=== PATIENT | female | born 1960 | race Asian ===

== ENCOUNTER 2021-10-01 14:37 | Emergency (ER) | payer MEDICAID, OTHER ==
[~2021-10-01] VITALS: Ht 157.5 cm; Wt 72.7 kg
[2021-10-01] MEDS ORDERED: SIMV-259 PO (15:32)
[2021-10-01] MEDS ORDERED: LOSA50TA37 PO (15:32)
[2021-10-01] MEDS ORDERED: ALLO100T PO (15:32)
[2021-10-01] MEDS ORDERED: METO25XL PO (15:32)
[2021-10-01 15:51] LABS: BASOPHILS % (AUTO) 0.9 % (0.0-2.0); HEMATOCRIT 40.3 % (36-46); HEMOGLOBIN 13.6 g/dL (12.0-16.0); LYMPHOCYTES # (AUTO) 2.3 K/uL (1.0-4.8); LYMPHOCYTES % (AUTO) 33.6 % (22.0-44.0); MEAN CORPUSCULAR HEMOGLOBIN 30.2 pg (26.0-34.0); MEAN CORPUSCULAR HGB CONC 33.8 G/dL (31.0-37.0); MEAN CORPUSCULAR VOLUME 90 fL (80-100); MONOCYTES # (AUTO) 0.6 K/uL (0.1-1.0); MONOCYTES % (AUTO) 9.1 % (2.0-9.0); NEUTROPHILS # (AUTO) 3.6 K/uL (1.8-7.7); NEUTROPHILS % (AUTO) 53.4 % (40.0-70.0); PLATELET COUNT (AUTO) 284 K/uL (150-450); RED CELL DISTRIBUTION WIDTH 13.3 % (11.5-14.5)
[2021-10-01 16:01] LABS: ANION GAP 5 mmol/L (8-16); CALCIUM, TOTAL 9.9 mg/dL (8.8-10.5); CARBON DIOXIDE 34 mmol/L (22-29); CHLORIDE 104 mmol/L (98-107); CREATININE 0.72 mg/dL (0.60-1.30); GLOMERULAR FILTR. RATE CALC > 60 mL/min (>60); GLUCOSE,RANDOM 121 mg/dL (70-110); POTASSIUM 3.8 mmol/L (3.5-5.1); SODIUM SERUM 143 mmol/L (136-145); UREA NITROGEN, BLOOD 12 mg/dL (7-18)
[2021-10-01 16:05] LABS: ALANINE AMINOTRANSFERASE 26 U/L (12-78); ALBUMIN 3.9 g/dL (3.4-5.0); ALKALINE PHOSPHATASE 86 U/L (46-116); ASPARTATE AMINOTRANSFERASE 23 U/L (15-37); BILIRUBIN,TOTAL 0.2 mg/dL (0.1-1.0); TOTAL PROTEIN, SERUM 8.7 g/dL (6.4-8.2)
[2021-10-01 16:18] VITALS: BP 119/63
[2021-10-01 16:22] LABS: B-TYPE NATRIURETIC PEPTIDE 18 pg/mL (0-100)
== END 2021-10-01 16:43 | disposition home or self-care (01) ==
LOC: EMS 14:42
DX: R06.00 Dyspnea, unspecified (principal); R06.02 Shortness of breath; I10 Essential (primary) hypertension; Z88.1 Allergy status to other antibiotic agents
CPT/HCPCS: 71045; 80053; 83880; 84484; 85025; 93005; 99285; 36415-L1; 36415-TC

== ENCOUNTER 2023-11-02 15:21 | Emergency (ER) | payer OTHER ==
[~2023-11-02] VITALS: Ht 154.9 cm; Wt 77.3 kg
[~2023-11-02 15:21] MED LIST: ALLO100T PO; LOSA-382 PO; METO25XL PO; SIMV-259 PO
[2023-11-02 15:26] VITALS: BP 142/85; PULSE 94; RESP 18; TEMP 98.4
[2023-11-02] MEDS ORDERED: ATOR20TA PO (15:28)
[2023-11-02] MEDS ORDERED: ASPI81TA87 PO (15:28)
== END 2023-11-02 17:41 | disposition left against medical advice (07) ==
LOC: EMS 15:24
DX: S61.251A Open bite of left index finger without damage to nail, initial encounter (principal); W54.0XXA Bitten by dog, initial encounter; Y93.89 Activity, other specified; Y92.89 Other specified places as the place of occurrence of the external cause; Y99.8 Other external cause status
CPT/HCPCS: 99281; Z7502